=== PATIENT | female | born 1940 | race Caucasian/White ===

== ENCOUNTER 2020-01-23 13:11 | Observation (INO) | payer MEDICARE, OTHER ==
[~2020-01-23] VITALS: Ht 167.6 cm; Wt 79.5 kg
[2020-01-23 13:48] LABS: BASOPHILS ABSOLUTE AUTO 0.06 K/mm3 (0.00-0.23); BASOPHILS PERCENT AUTO 1 % (0-2); EOSINOPHILS ABSOLUTE AUTO 0.08 K/mm3 (0.00-0.68); EOSINOPHILS PERCENT AUTO 1 % (0-6); Hematocrit 44.5 % (33.0-51.0); Hemoglobin 14.5 g/dL (11.5-16.0); IMMATURE GRAN ABSOLUTE AUTO 0.05 K/mm3 (0.00-0.10); IMMATURE GRAN PERCENT AUTO 1 % (0-1); LYMPHOCYTES ABSOLUTE AUTO 1.81 K/mm3 (0.84-5.20); LYMPHOCYTES PERCENT AUTO 30 % (21-46); MONOCYTES ABSOLUTE AUTO 0.72 K/mm3 (0.16-1.47); MONOCYTES PERCENT AUTO 12 % (4-13); Mean Corpuscular HGB 32.5 pg (26.0-34.0); Mean Corpuscular HGB Conc 32.6 g/dL (31.5-36.5); Mean Corpuscular Volume 100 fL (80-100); Mean Platelet Volume 11.3 fL (9.1-12.4); NEUTROPHILS ABSOLUTE AUTO 3.23 K/mm3 (1.96-9.15); NEUTROPHILS PERCENT AUTO 54 % (41-73); Platelet Count 225 K/mm3 (150-400); RDW Coefficient Variation 12.3 % (11.7-14.2); Red Blood Cell Count 4.46 M/mm3 (3.80-5.20); White Blood Cell Count 5.95 K/mm3 (4.00-11.30)
[2020-01-23] MEDS ORDERED: DULO30 PO (13:59)
[2020-01-23] MEDS ORDERED: LANS15EC PO (14:00)
[2020-01-23] MEDS ORDERED: EUTHYROX50 MCG PO (14:01)
[2020-01-23] MEDS ORDERED: Norco 5-325 Ta1 EACH PO (14:02)
[2020-01-23] MEDS ORDERED: HYOPHEN TABLET1 EACH PO (14:03)
[2020-01-23] MEDS ORDERED: AMLO5 PO (14:04)
[2020-01-23] MEDS ORDERED: ELIQUIS5 MG PO (14:05)
[2020-01-23] MEDS ORDERED: DIPATR PO ×2 (14:07→15:11)
[2020-01-23] MEDS ORDERED: Valerian Root500 MG PO ×2 (14:08→18:47)
[2020-01-23] MEDS ORDERED: MELA3 PO (14:08)
[2020-01-23] MEDS ORDERED: OXYB5 PO ×2 (14:08→15:03)
[2020-01-23 14:09] LABS: Alanine Aminotransfer (ALT/SGP 28 U/L (12-78); Albumin, Blood 3.6 g/dL (3.4-5.0); Albumin/Globulin Ratio 1.1 (0.8-1.8); Alk Phos 87 U/L (50-136); Anion Gap 5 mmol/L (6-16); Aspartate Aminotrans (AST/SGOT 15 U/L (12-37); Bilirubin, Total 0.3 mg/dL (0.1-1.0); Blood Urea Nitrogen 23 mg/dL (8-24); Bun/Creatinine Ratio 32.9 (12.0-20.0); CO2, Blood 26 mmol/L (21-32); Calcium, Blood 8.4 mg/dL (8.5-10.1); Chloride, Blood 107 mmol/L (98-108); Globulin, Blood 3.4 g/dL (2.2-4.0); Glomerular Filtration Rate >60 (60-); Glucose, Blood 121 mg/dL (70-99); Potassium, Blood 4.3 mmol/L (3.5-5.5); Sodium, Blood 138 mmol/L (136-145); Troponin I 0.059 ng/mL (0.000-0.040)
[2020-01-23] MEDS ORDERED: HIPREX1 G1 PO (15:01)
[2020-01-23] MEDS ORDERED: SYNTHROID50 MC1 PO (15:02)
[2020-01-23] MEDS ORDERED: Cymbalta30 MG PO (15:03)
[2020-01-23] MEDS ORDERED: LOSARTAN POTAS100 M1 PO (15:03)
[2020-01-23] MEDS ORDERED: HYDR1TAB94 PO (15:12)
[2020-01-23 18:39] LABS: International Normalized Ratio 0.92; Prothrombin Time Results 9.9 Sec (9.7-11.5)
[2020-01-23] MEDS ORDERED: L-TRYPTOPHAN500 MG PO (18:48)
[2020-01-23] MEDS ORDERED: LANS30EC PO (18:51)
[2020-01-24 02:23] LABS: BASOPHILS ABSOLUTE AUTO 0.04 K/mm3 (0.00-0.23); BASOPHILS PERCENT AUTO 1 % (0-2); EOSINOPHILS ABSOLUTE AUTO 0.09 K/mm3 (0.00-0.68); EOSINOPHILS PERCENT AUTO 2 % (0-6); Hematocrit 43.7 % (33.0-51.0); Hemoglobin 14.3 g/dL (11.5-16.0); IMMATURE GRAN ABSOLUTE AUTO 0.03 K/mm3 (0.00-0.10); IMMATURE GRAN PERCENT AUTO 1 % (0-1); LYMPHOCYTES ABSOLUTE AUTO 1.52 K/mm3 (0.84-5.20); LYMPHOCYTES PERCENT AUTO 33 % (21-46); MONOCYTES ABSOLUTE AUTO 0.47 K/mm3 (0.16-1.47); MONOCYTES PERCENT AUTO 10 % (4-13); Mean Corpuscular HGB Conc 32.7 g/dL (31.5-36.5); Mean Corpuscular Volume 98 fL (80-100); NEUTROPHILS ABSOLUTE AUTO 2.41 K/mm3 (1.96-9.15); NEUTROPHILS PERCENT AUTO 53 % (41-73); Platelet Count 205 K/mm3 (150-400); RDW Coefficient Variation 12.2 % (11.7-14.2); RDW Standard Deviation 44.2 fL (35.1-46.3); Red Blood Cell Count 4.47 M/mm3 (3.80-5.20); White Blood Cell Count 4.56 K/mm3 (4.00-11.30)
[2020-01-24 02:43] LABS: Anion Gap 7 mmol/L (6-16); Blood Urea Nitrogen 21 mg/dL (8-24); CHOL/HDL RATIO 4.7; CO2, Blood 28 mmol/L (21-32); Calcium, Blood 8.9 mg/dL (8.5-10.1); Chloride, Blood 106 mmol/L (98-108); Cholesterol 291 mg/dL (50-200); Creatinine, Blood 0.91 mg/dL (0.40-1.00); Glomerular Filtration Rate >60 (60-); Glucose, Blood 113 mg/dL (70-99); HDL Cholesterol 62 mg/dL (>39); LDL/HDL RATIO 3.2; Low Density Lipoprotein Chol 201 mg/dL (0-110); Magnesium, Blood 2.3 mg/dL (1.6-2.4); Sodium, Blood 141 mmol/L (136-145); Triglycerides 139 mg/dL (30-160); Very Low Density Lipoprot Chol 27 mg/dL (6-32)
--- NOTE | 2020-01-24 04:52 | NUR ---
SUMMARY PT DENIES CX PAIN OR SOB. PT REPORTED GUERRA AND R SHOULDER PAIN (CHRONIC) AND TX PER EMAR. PT HAS SLEPT WELL W/ CPAP. PT HAS VOIDED WELL. PT CURRENTLY SLEEPING AND IN NO DISTRESS. CALL LIGHT IN REACH.
--- NOTE | 2020-01-24 18:42 | NUR ---
PT IS A/OX3, PLEASANT AND COOPERATIVE, UP IND IN HER ROOM TO THE BATHROOM, THE PT APPEARS TO BE BREATHING EASILY ON RA AT THIS TIME, THE PT CONTINUES ON A HEPRIN GTT, THE PT DENIED ANY PAIN THIS AFTERNOON, PTS FAMILY IS AT THE BEDSIDE, CALL LIGHT IN REACH, I ASSUMED CARE OF THE PT AROUND 1600 FROM NENITA CASTILLO
[2020-01-25 02:13] LABS: BASOPHILS ABSOLUTE AUTO 0.04 K/mm3 (0.00-0.23); BASOPHILS PERCENT AUTO 1 % (0-2); EOSINOPHILS ABSOLUTE AUTO 0.08 K/mm3 (0.00-0.68); EOSINOPHILS PERCENT AUTO 2 % (0-6); Hematocrit 44.7 % (33.0-51.0); Hemoglobin 14.6 g/dL (11.5-16.0); IMMATURE GRAN ABSOLUTE AUTO 0.03 K/mm3 (0.00-0.10); IMMATURE GRAN PERCENT AUTO 1 % (0-1); LYMPHOCYTES ABSOLUTE AUTO 1.98 K/mm3 (0.84-5.20); LYMPHOCYTES PERCENT AUTO 39 % (21-46); MONOCYTES ABSOLUTE AUTO 0.54 K/mm3 (0.16-1.47); MONOCYTES PERCENT AUTO 11 % (4-13); Mean Corpuscular HGB 32.2 pg (26.0-34.0); Mean Corpuscular HGB Conc 32.7 g/dL (31.5-36.5); Mean Corpuscular Volume 99 fL (80-100); Mean Platelet Volume 11.1 fL (9.1-12.4); NEUTROPHILS ABSOLUTE AUTO 2.45 K/mm3 (1.96-9.15); NEUTROPHILS PERCENT AUTO 48 % (41-73); Platelet Count 208 K/mm3 (150-400); RDW Coefficient Variation 12.2 % (11.7-14.2); RDW Standard Deviation 44.4 fL (35.1-46.3); Red Blood Cell Count 4.54 M/mm3 (3.80-5.20); White Blood Cell Count 5.12 K/mm3 (4.00-11.30)
[2020-01-25 02:33] LABS: Bun/Creatinine Ratio 23.1 (12.0-20.0); Creatinine, Blood 1.04 mg/dL (0.40-1.00)
--- NOTE | 2020-01-25 05:41 | NUR ---
Patient rested well despite needing to use bathroom 3-4 times overnight. Concerned about using her oxymetalazone overnight with lasix, pharmacy assured her one would not affect the other. last aPtt was 63.8 around 0230. No change in dosage of heparin whis is currently running at 18 units/kg/hr or 24.5ml/hr on the pump. Plan is to hopefully start oral lasix today and progress towards home.
[2020-01-25] MEDS ORDERED: METO25ER PO (11:10)
[2020-01-25] MEDS ORDERED: EZALLOR SPRINKL20 MG PO (11:11)
--- NOTE | 2020-01-25 12:46 | NUR ---
PT DISCHARGED FROM THE UNIT. IV REMOVED. DISCHARGE INSTRUCTIONS REVIEWED. [facility] S[facility] GIVEN. FOLLOW UP APT WITH DR. STOCKTON SCHEDULED. PT LEFT UNIT VIA WHEEL CHAIR. DAUGHTER TO DRIVE HOME
== END 2020-01-25 12:15 | disposition home or self-care (01) ==
LOC: ER 13:11 → MEDS 13:12
PROVIDERS: Emergency Medicine; Family Medicine; Internal Medicine Cardiovascular Disease; Pharmacist; ADMIT Hospitalist
DX: I11.0 Hypertensive heart disease with heart failure (principal); I50.32 Chronic diastolic (congestive) heart failure; I42.2 Other hypertrophic cardiomyopathy; D68.59 Other primary thrombophilia; G47.33 Obstructive sleep apnea (adult) (pediatric); E78.5 Hyperlipidemia, unspecified; E03.9 Hypothyroidism, unspecified; I35.8 Other nonrheumatic aortic valve disorders; E66.9 Obesity, unspecified; Z86.711 Personal history of pulmonary embolism; Z79.01 Long term (current) use of anticoagulants; Z99.89 Dependence on other enabling machines and devices; Z66 Do not resuscitate; Z79.899 Other long term (current) drug therapy; Z88.5 Allergy status to narcotic agent; Z88.8 Allergy status to other drugs, medicaments and biological substances; Z68.29 Body mass index [BMI] 29.0-29.9, adult
CPT/HCPCS: 36415; 71046; 80048; 80053; 80061; 83036; 83735; 83880; 84443; 84484; 85025; 85610; 85730; 93005; 93010; 96374; 99285-25; A9270-GY; C8929; J1644; J1940; Q9957

== ENCOUNTER 2020-10-02 08:20 | Day surgery (SDC) | payer MEDICARE, OTHER ==
[~2020-10-02] VITALS: Ht 162.6 cm; Wt 75.0 kg
[~2020-10-02 08:20] MED LIST: AMLO5 PO; Crestor20 MG PO; Cymbalta30 MG PO; DIPATR PO; DULO30 PO; ELIQUIS5 MG PO; EUTHYROX50 MCG PO; EZALLOR SPRINKL20 MG PO; FURO40 PO; HIPREX1 G1 PO; HYDR1TAB94 PO; HYOPHEN TABLET1 EACH PO; L-TRYPTOPHAN500 MG PO; LANS15EC PO; LANS30EC PO; LOPE2C PO; LORA.5 PO; LOSARTAN POTAS100 M1 PO; MELA3 PO; MELATONIN 5 MG1 EACH PO; METO25ER PO; Norco 5-325 Ta1 EACH PO; OMEP20ER PO; OMEPRAZOLE20 M1 PO; ONDA4 PO; OXYB5 PO; SYNTHROID50 MC1 PO; TRAM50 PO; Valerian Root500 MG PO; Voltaren100 GM TOP
--- NOTE | 2020-10-02 11:10 | NUR ---
[facility]ALEIGH RETURNED FROM THE [facility] VIA RECLINER, NIBP LOW, CONTINUE TO MONITOR. PLACED ON 3 LPM BY NC. SATURATION DIPPING INTO THE LOW 90'S. PATIENT IS HAVING CONTINUED CHEST PAIN 1/10 IN CHEST AND DOWN LEFT ARM. NOTIFIED DR. MERA.
--- NOTE | 2020-10-02 11:12 | NUR ---
patient returned to [facility] recovery room A&O. states that she has a "pain in heart" 1/10 scale. TR band in place to right wrist. good sensation to fingers of right hand.
--- NOTE | 2020-10-02 11:35 | NUR ---
Dr Crews in to see patient. EKG done for compl;aints of chest pain 06/02. reviewed by Dr Castillo. IV normal saline bolus started per Dr Castillo order.
--- NOTE | 2020-10-02 11:43 | NUR ---
patient up to bed side camode to void clear yellow urine.
[2020-10-02] MEDS ORDERED: Isosorbide Mono30 MG PO (12:38)
--- NOTE | 2020-10-02 14:35 | NUR ---
TR BAND REMOVED. A LUMP LATERAL TO THE INSERTION SITE NOTED APPROXIMATELY ARIEL SIZE BUT NOT GROWING. TR BAND REPLACED WITH 12CC AIR. [facility]PED TO ASSESS SITE. THE HEMATOMA REDUCED AFTER REMOVING THE TR MABD. SITE IS STABLE AND DOES NOT APPEAR TO BE AN ACTIVE BLEED. WILL OBBSERVE, BEFGORE DISCHARGE.
--- NOTE | 2020-10-02 14:52 | NUR ---
RIGHT RADIAL SITE STABLE. DRESSING D&I. ARM BOARD IN PLACE AND SLING IN PLACE TO RIGHT ARM. STATES THAT CHEST DISCOMFORT IS LESS THAN 1/10 AND HAS GOTTEN BETTER OVER THE PAST FEW HOURS. VERBALIZED UNDERSTANDING OF DISCHARGE INSTRUCTIONS AND PRECAUTIONS. TRANSFERRED TO CAR VIA WHEEL CHAIR BY MAL CASTILLO.
== END 2020-10-02 17:00 | disposition home or self-care (01) ==
LOC: MHTC 08:20
DX: R07.9 Chest pain, unspecified (principal); I42.2 Other hypertrophic cardiomyopathy; I25.10 Atherosclerotic heart disease of native coronary artery without angina pectoris; I11.0 Hypertensive heart disease with heart failure; I50.32 Chronic diastolic (congestive) heart failure; R00.2 Palpitations; G47.33 Obstructive sleep apnea (adult) (pediatric); R94.31 Abnormal electrocardiogram [ECG] [EKG]; E66.3 Overweight; E78.5 Hyperlipidemia, unspecified; Z66 Do not resuscitate; I47.1 Supraventricular tachycardia; E03.9 Hypothyroidism, unspecified; M79.7 Fibromyalgia; Z86.19 Personal history of other infectious and parasitic diseases; Z79.01 Long term (current) use of anticoagulants; Z79.899 Other long term (current) drug therapy
CPT/HCPCS: 76937; 85347; 92978; 93005; 93010; 93454; 93571; 93572; 99152; 99153; A9270; C1753; C1769; C1887; C1894; J1644; J2250; J2370; J3010; J7030; J7040; J7050; Q9967